=== PATIENT | female | born 1990 | race Caucasian/White ===

== ENCOUNTER 2017-02-21 12:10 | Inpatient (IN) | payer MEDICAID ==
[~2017-02-21] VITALS: Ht 147.3 cm; Wt 54.4 kg
--- NOTE | ~2017-02-21 | OR ---
ADMIT: 02/21/2017 RM/LOC: 222 [facility] MR#: [id number] [address] [address] LOUISE ALCAZAR [address] [place] [address] Operative/Delivery Room Report SEX: F AGE: 26 : 1990 SURGERY DATE: 02/21/2017 SURGEON: Flori Baumann MD PREOPERATIVE DIAGNOSES: 1. Intrauterine at 39 and 5/7th weeks' gestation. 2. Active labor. 3. Group B streptococcus negative. POSTOPERATIVE DIAGNOSES: 1. Intrauterine at 39 and 5/7th weeks' gestation. 2. Active labor. 3. Group B streptococcus negative. 4. Delivery of a viable male infant at 1504 hours weighing 8 pounds 1 ounce with score of 8 at 1 minute, 9 at 5 minutes. PROCEDURE: Spontaneous vaginal delivery. ANESTHESIA: None. COMPLICATIONS: None. ESTIMATED BLOOD LOSS: 100 mL. FLUIDS: Crystalloid. INDICATIONS: This is a 26-year-old female, 5, para 4, who presented to the [facility] with an intrauterine at 39 and 5/7 weeks' gestation in active labor. Her is complicated by late entry care. She did progress to be complete in a satisfactory fashion at which time, she was allowed to push bringing the infant's vertex to the perineum. DESCRIPTION OF PROCEDURE: The patient was noted to be complete. She was placed in the dorsal lithotomy position and prepped and draped in usual sterile fashion. She was asked to push and delivered the infant's vertex in ADMIT: 02/21/2017 RM/LOC: 222 [facility] MR#: [id number] [address] [address] LOUISE ALCAZAR [address] [place] [address] Operative/Delivery Room Report SEX: F AGE: 26 : 1990 the occiput anterior position over the midline. Nuchal cord was checked and none was noted. The anterior and posterior shoulders as well as remainder of the infant were then easily delivered. The infant did have spontaneous cry and movement of all 4 extremities. He was passed to the mother's abdomen where nursing personnel were in attendance. After 1 minute, the cord was clamped x2 and cut by the father. Cord blood was obtained. Twenty units of Pitocin were infused with IV fluids to help firm the uterus. The placenta delivered intact spontaneously. The uterus was not explored. Examination of the cervix and vaginal vault did not reveal any lacerations. Examination of the perineum revealed this to be intact as well. The patient tolerated the procedure well. Sponge, needle, and instrument counts were correct. The patient and her infant are recovering in her Labor and Delivery suite. Flori Baumann MD/ anahi JOB #: [id number] CC: Shakir Gill, Attending Physician Shakir Gill, Family Physician
--- NOTE | ~2017-02-21 | FD ---
ADMIT: 02/21/2017 RM/LOC: 222 [facility] MR#: [id number] [id number] [facility] [address] [place] [id number] ELADIA HANLEY, L[address] [place] [address] Final Diagnosis SEX: F AGE: 26 : 1990 ADMISSION DATE: 02/21/2017 DISCHARGE DATE: 02/22/2017 FINAL DIAGNOSIS: Status post spontaneous vaginal delivery at term. PROCEDURE: 02/21/2017 spontaneous vaginal delivery with delivery of viable male, 8 pounds 1 ounce, Apgars 8 and 9. Flori Baumann MD/ nicolette JOB #: [id number] CC: Shakir Gill MD, Attending Physician Shakir Gill MD, Family Physician
[~2017-02-21 12:10] MED LIST: MOTRIN-DPS800 MG PO; NIPPLECREAM TP; PRENATAL VIT1 TAB PO; TYLENOL #3 DPS1 TAB PO
--- NOTE | 2017-03-14 12:19 | HP ---
ADMIT: 02/21/2017 RM/LOC: 222 [facility] MR#: [id number] [facility]#: [id number] [address] [facility] [address] [place], [place] [address] LOUISE [address]AR [address] [facility] [place] [address] History and Physical SEX: F AGE: 26 : 1990 Corrected: 02/22/[address] [facility] DATE OF SERVICE: CHIEF COMPLAINT: Uterine contractions. HISTORY OF PRESENT ILLNESS: This is a 26-year-old female, 5, para 4-0- 0-4, who [facility] with an intrauterine at 39 and 5/7th weeks' gestation with complaints of uterine contractions increasing in frequency and intensity. Her has been complicated by late entry to care and her estimated date of confinement is based off last menstrual period and consistent with a 26th week ultrasound. At the time of initial evaluation, she was noted to be 6 cm dilated and april regularly. She is therefore admitted for labor. PAST MEDICAL HISTORY: She denies hypertension, diabetes, asthma, kidney, or thyroid disease. PAST SURGICAL HISTORY: None. SOCIAL HISTORY: She is not , but her significant other is involved. She denies tobacco, alcohol, or drug use. ALLERGIES: NO KNOWN DRUG ALLERGIES. CURRENT MEDICATIONS: vitamins. LABORATORY DATA: Blood type is O positive. Antibody screen negative. HIV negative. Rubella immune. RPR nonreactive. Hepatitis B surface antigen negative. Pap was normal. Gonorrhea and chlamydia negative. Diabetic screen 169. 3-hour glucose tolerance test 76, 159, 158, 130. Group B strep is negative. PHYSICAL EXAMINATION: VITAL SIGNS: Temperature 99.1, blood pressure 127/61, pulse 105, and respirations 16. GENERAL: This is a pleasant female, in no acute distress. HEENT. Head is normocephalic and atraumatic. Pupils are equal, round, reactive to light and accommodation. Extraocular muscles are intact. NECK: Supple. HEART: Regular rate and rhythm. LUNGS: Clear bilaterally. ABDOMEN: Soft, nontender, and nondistended. Gravid. EXTREMITIES: Nontender. PELVIC: heart tones are 150s baseline, moderate variability is present. Decelerations are absent. Uterine contractions are every 2 to 4 minutes. Her ADMIT: 02/21/2017 RM/LOC: 222 [facility] MR#: [id number] [address] [address] ELADIA HANLEY, [address] [place], [place] [id number] History and Physical SEX: F AGE: 26 : 1990 cervix is 6 cm, 90% effaced, -1 station. Fetus is vertex. IMPRESSION: 1. This is a 26-year-old female, 5, para 4, with an intrauterine at 39 and 5/7th weeks' gestation in active labor. 2. Group B streptococcus negative. PLAN: At this time, we do plan to admit the patient for labor. We will treat her pain as she desires, augment if needed, and anticipate a spontaneous vaginal delivery. Flori Baumann MD/ anahi JOB #: [id number] CC: Shakir Gill, Attending Physician Shakir Gill, Family Physician Corrected: 02/22/2017 0937 [facility]
== END 2017-02-22 16:45 | disposition home or self-care (01) | DRG 775 ==
LOC: BC 12:10 → 2LDRP 12:14 → BC 12:14 → 2LDRP 12:15 → BC 12:59 → 2LDRP 13:00 → BC 02-22 08:00 → 2LDRP 02-22 16:45
PROVIDERS: ADMIT Obstetrics & Gynecology
PROC: 10E0XZZ Delivery of Products of Conception, External Approach (ICD-10-PCS; principal; 2017-02-21)
DX: O80 Encounter for full-term uncomplicated delivery (principal); Z37.0 Single live birth; Z3A.39 39 weeks gestation of pregnancy